=== PATIENT | female | born 1995 | race African-American/Black ===

== ENCOUNTER 2021-09-10 05:57 | Emergency (ER) | payer MEDICAID ==
[~2021-09-10] VITALS: Ht 175.3 cm; Wt 125.0 kg
[2021-09-10] MEDS ORDERED: ACETAMINOPHEN 325MG TABLET PO ONE (06:30)
[2021-09-10] MEDS ORDERED: TOPUD PO (07:23)
[2021-09-10 07:53] VITALS: BP 119/65
== END 2021-09-10 07:54 | disposition home or self-care (01) ==
LOC: ER 05:57
DX: S00.83XA Contusion of other part of head, initial encounter (principal); I10 Essential (primary) hypertension; V43.52XA Car driver injured in collision with other type car in traffic accident, initial encounter; Y93.89 Activity, other specified; Y92.410 Unspecified street and highway as the place of occurrence of the external cause
CPT/HCPCS: 99284